=== PATIENT | male | born 1980 | race Two or more races ===

== ENCOUNTER 2024-12-08 22:51 | Emergency (ER) | payer OTHER ==
[~2024-12-08] VITALS: Ht 167.6 cm; Wt 86.2 kg
[2024-12-09] MEDS ORDERED: PROMETHAZINE HCL 50 MG/ML AMPUL IM STA (00:46)
[2024-12-09] MEDS ORDERED: KETOROLAC TROMETHAMINE 30 MG VIAL IV STA (00:47)
[2024-12-09] MEDS ORDERED: TAMSULOSIN HCL 0.4 MG CAP PO STA (00:47)
[2024-12-09] MEDS ORDERED: SODIUM CHLORIDE 0.45 % 1,000 ML IV ONE (01:00)
[2024-12-09 01:22] LABS: HEMATOCRIT 44.2 % (39.0-48.0); HEMOGLOBIN 14.9 g/dL (13-16.00); MEAN CELL VOLUME 84.8 fL (80.0-100.00); MEAN CORPUSCULAR HEMOGLOBIN 28.5 pg (27.00-32.0); MEAN CORPUSCULAR HGB CONC 33.6 g/dl (32.0-36.0); PLATELET COUNT 228 K/uL (150-450); RED BLOOD COUNT 5.21 M/uL (4.00-6.00); RED CELL DISTRIBUTION WIDTH 13.4 % (11.5-14.5)
[2024-12-09 04:30] LABS: CALCIUM 9.2 mg/dL (8.5-10.1); CREATININE SERUM 0.91 mg/dL (0.70-1.30); GFR 90.09; POTASSIUM 4.03 mEq/L (3.5-5.1)
[2024-12-09 08:41] LABS: URINE APPEARANCE Cloudy; URINE BILIRRUBIN Negative (NEGATIVE); URINE BLOOD Large; URINE COLOR Yellow; URINE GLUCOSE Negative (NEGATIVE); URINE KETONE Trace (NEGATIVE); URINE LEUKOCYTE Moderate; URINE NITRATE Negative; URINE PROTEIN Trace (NEGATIVE); URINE UROBILINOGEN 0.2 E.U./dl
[2024-12-09 08:45] LABS: URINE EPITHELIAL CELLS 37.9 uL (0.0-38.8); URINE RBC 155.4 uL (0.0-20.8); URINE WBC 494.1 uL (0.0-23.2)
[2024-12-09 08:55] LABS: URINE CAST 0.14 uL (0.0-1.40)
== END 2024-12-09 10:30 | disposition home or self-care (01) ==
LOC: ER 22:53
PROVIDERS: General Practice
DX: N20.1 Calculus of ureter (principal); R10.9 Unspecified abdominal pain; K57.30 Diverticulosis of large intestine without perforation or abscess without bleeding

== ENCOUNTER 2025-09-12 03:36 | Emergency (ER) | payer OTHER ==
[~2025-09-12] VITALS: Ht 167.6 cm; Wt 100.2 kg
[2025-09-12] MEDS ORDERED: ASPIRIN 325 MG TABLET.EC PO ONE (07:30)
[2025-09-12 08:38] LABS: BUN CREA RATIO 19.0 (7.0-25.0); CREATININE SERUM 0.83 mg/dL (0.70-1.30); GFR 101.12; GLUCOSE FASTING 117.0 mg/dL (65-100); OSMOLALITY SERUM 278.0 MOSM/KG (275-295)
[2025-09-12 08:55] LABS: BASO % 0.3 % (0.1-1.2); EOS # 0.10 (0.04-0.54); EOS % 1.5 % (0.7-7.0); LYMPH # 2.03 (1.18-3.74); LYMPH % 30.9 % (19.3-53.1); MEAN PLATELET VOLUME 9.40 fl (9.4-12.4); MONO # 0.62 (0.24-0.82); MONO % 9.4 % (4.7-12.5); NEUT # 3.79 (1.56-6.13); NEUT % 57.7 % (34.0-71.1); RED CELL DISTRIBUTION WIDTH 12.8 % (11.6-14.4)
== END 2025-09-12 11:48 | disposition home or self-care (01) ==
LOC: ER 03:36
PROVIDERS: Emergency Medicine
DX: R07.89 Other chest pain (principal); R00.2 Palpitations; E11.9 Type 2 diabetes mellitus without complications